=== PATIENT | female | born 1960 | race African-American/Black ===

== ENCOUNTER 2017-12-10 21:31 | Observation (INO) | payer OTHER ==
[~2017-12-10] VITALS: Ht 175.3 cm; Wt 70.0 kg
[~2017-12-10 21:31] MED LIST: CIPR500T4 PO; ONDA1TAB16 PO; PERC5TAB12 PO
[2017-12-10 22:18] VITALS: BP 132/63; PULSE 70; RESP 16; TEMP 99.2; O2SAT 99
--- NOTE | 2017-12-10 22:30 | RADRPT ---
EXAM DATE/TIME: 12/10/2017 21:59 [facility] COMPARISON: No previous studies available for comparison. INDICATIONS : Short of breath, cough. MEDICAL HISTORY : None. SURGICAL HISTORY : None. ENCOUNTER: Initial ACUITY: 1 day PAIN SCORE: 0/10 LOCATION: Bilateral chest FINDINGS: PA and lateral views of the chest demonstrate the lungs to be symmetrically aerated without evidence of mass, infiltrate or effusion. The cardiomediastinal contours are unremarkable. Osseous structure s are intact. CONCLUSION: No evidence of acute cardiopulmonary disease. Oscar Lutz MD on December 10, 2017 at 22:28 Board Certified Radiologist. This report was verified electronically.
--- NOTE | 2017-12-10 22:49 | PD ---
HPI Chief Complaint: Chest Pain Time Seen by Provider: 22:47 Travel History International Travel<30 days: No Contact w/Intl Traveler<30days: No Traveled to known affect area: No History of Present Illness HPI The patient is a 57 year old female who presents to the [facility] emergency department with a history of shortness of breath, throat pain, and chest pain that began at 6 :30 PM today while she was eating. She had n/v x2 with it and was belching. She then later began to notice an aching sensation in her left arm, therefore she came to the ER for evaluation. The pain is in the center of her and was a sharp sensation. It lasted for 10 minutes. She denies having any recent stress test. The patient denies any prior history of myocardial infarction, congestive heart failure, DVT, or PE. The patient denies any personal history of high blood pressure, diabetes, hyperlipidemia, or smoking. On review of systems otherwise, the patient denies having any known recent fevers, worsening cough or congestion (history of chronic cough from postnasal drip and allergies), abdominal pain, diarrhea, urinary symptoms, or neurologic symptoms. She denies any problems with acid reflux or heart burn. She denies any prior history of difficulty swallowing solids or liquids. PCP: Dr. Rangel. [facility] Past Medical History Narrative Medical The patient's past medical history is significant for kidney stones, allergic rhinitis, sinusitis. Arthritis: No Asthma: No Autoimmune Disease: No Blood Disorders: No Anxiety: No Depression: No Heart Rhythm Problems: No Cancer: No Cardiac Catheterization: Yes (no stents) Cardiovascular Problems: No High Cholesterol: No Chemotherapy: No Chest Pain: Yes Congestive Heart Failure: No COPD: No Cerebrovascular Accident: No Diabetes: No Diminished Hearing: No Endocrine: No Gastrointestinal Disorders: No GERD: No Glaucoma: No Genitourinary: No Headaches: No Hepatitis: No Hiatal Hernia: No Hypertension: No Immune Disorder: No Kidney Stones: Yes Musculoskeletal: No Neurologic: No Psychiatric: No Respiratory: No Immunizations Current: Yes Myocardial Infarction: No Radiation Therapy: No Renal Failure: No Seizures: No Sickle Cell Disease: No Sleep Apnea: No Thyroid Disease: No Ulcer: No Tetanus Vaccination: Unknown Influenza Vaccination: No ?: Not LMP: menapause Past Surgical History Narrative Surgical The patient's past surgical history is reportedly none. Abdominal Surgery: No AICD: No Cardiac Surgery: No Ear Surgery: No Endocrine Surgery: No Eye Surgery: No Genitourinary Surgery: No Gynecologic Surgery: No Joint Replacement: No Neurologic Surgery: No Oral Surgery: No Pacemaker: No Thoracic Surgery: No Social History Alcohol Use: No Tobacco Use: No Substance Use: No Allergies-Medications (Allergen,Severity, Reaction): Coded Allergies: penicillin G (Unverified Allergy, Severe, 12/10/17) Reported Meds & Prescriptions Reported Meds & Active Scripts Active No Active Prescriptions or Reported Medications Her only current medication is Zyrtec D Review of Systems Except as stated in HPI: all other systems reviewed are Neg General / Constitutional: No: Fever Eyes: No: Visual changes HENT: Positive: Neck Pain, No: Headaches, Neck Stiffness Cardiovascular: Positive: Chest Pain or Discomfort, Dyspnea on exertion, No: Diaphoresis Respiratory: Positive: Shortness of Breath, No: Cough Gastrointestinal: Positive: Nausea, Vomiting, No: Abdominal Pain Genitourinary: No: Dysuria Musculoskeletal: No: Pain Skin: No Rash Neurologic: No: Weakness, Focal Abnormalities, Change in Mentation, Slurred Speech, Sensory Disturbance Psychiatric: No: Depression Endocrine: No: Polydipsia Hematologic/Lymphatic: No: Easy Bruising Physical Exam Narrative General: The patient is a well-developed well-nourished female in no acute distress. Head and Neck exam: Head is normocephalic atraumatic. Eyes: EOMI, pupils are equal round and reactive to light. Nose: Midline septum with pink mucous membranes Mouth: Dentition unremarkable. Moist mucus membranes. Posterior oropharynx is not erythematous. No tonsillar hypertrophy. Uvula midline. Airway patent. Neck: No palpable lymphadenopathy. No nuchal rigidity. No thyromegaly. Cardiovascular: Regular rate and rhythm without murmurs, gallops, or rubs. No pulse deficit to the extremities on simultaneous auscultation of her radial artery. Lungs: Clear to auscultation bilaterally. No wheezes, rhonchi, or rales. Abdomen: Soft, without tenderness to palpation in all 4 quadrants of the abdomen. No guarding, rebound, or rigidity. Normal bowel sounds are audible. No tenderness on palpation of McBurney's point. Negative Pierce sign. Extremities: No clubbing, cyanosis, or edema. 2+ pulses in all 4 extremities. No calf tenderness on palpation. Negative Homans sign. No palpable cords. Back: No costovertebral angle tenderness to palpation. Neurologic Exam: Grossly nonfocal. Skin Exam: No rash noted. Intact skin that is warm and dry. Data Data Last Documented VS Vital Signs Date Time Temp Pulse Resp B/P (MAP) Pulse Ox O2 Delivery O2 Flow Rate FiO2 12/10/17 23:06 100 Room Air 12/10/17 23:06 84 18 166/74 (104) 12/10/17 22:18 99.2 Orders Orders Electrocardiogram (12/10/17 21:40) Complete Blood Count With Diff (12/10/17 21:40) Basic Metabolic Panel (Bmp) (12/10/17 21:40) Ckmb (Isoenzyme) Profile (12/10/17 21:40) Troponin I (12/10/17 21:40) Iv Access Insert/Monitor (12/10/17 21:40) Ecg Monitoring (12/10/17 21:40) Oxygen Administration (12/10/17 21:40) Oximetry (12/10/17 21:40) Chest, Pa & Lat (12/10/17 21:40) D-Dimer (12/10/17 23:10) Hepatic Functional Panel (12/10/17 23:16) Lipase (12/10/17 23:16) Admit Order (Ed Use Only) (12/11/17 00:35) Labs Laboratory Tests Test 12/10/17 23:16 White Blood Count 5.8 TH/MM3 Red Blood Count 4.70 MIL/MM3 Hemoglobin 12.5 GM/DL Hematocrit 37.7 % Mean Corpuscular Volume 80.3 FL Mean Corpuscular Hemoglobin 26.6 PG Mean Corpuscular Hemoglobin Concent 33.2 % Red Cell Distribution Width 14.0 % Platelet Count 251 TH/MM3 Mean Platelet Volume 8.9 FL Neutrophils (%) (Auto) 58.7 % Lymphocytes (%) (Auto) 28.9 % Monocytes (%) (Auto) 10.2 % Eosinophils (%) (Auto) 1.6 % Basophils (%) (Auto) 0.6 % Neutrophils # (Auto) 3.4 TH/MM3 Lymphocytes # (Auto) 1.7 TH/MM3 Monocytes # (Auto) 0.6 TH/MM3 Eosinophils # (Auto) 0.1 TH/MM3 Basophils # (Auto) 0.0 TH/MM3 CBC Comment DIFF FINAL Differential Comment D-Dimer Quantitative (PE/DVT) LESS THAN 0.19 MG/L FEU Blood Urea Nitrogen 14 MG/DL Creatinine 0.82 MG/DL Random Glucose 95 MG/DL Total Protein 7.2 GM/DL Albumin 4.1 GM/DL Calcium Level 9.8 MG/DL Alkaline Phosphatase 75 U/L Aspartate Amino Transf (AST/SGOT) 13 U/L Alanine Aminotransferase (ALT/SGPT) 21 U/L Total Bilirubin 0.3 MG/DL Direct Bilirubin 0.1 MG/DL Sodium Level 141 MEQ/L Potassium Level 3.9 MEQ/L Chloride Level 108 MEQ/L Carbon Dioxide Level 27.5 MEQ/L Anion Gap 6 MEQ/L Estimat Glomerular Filtration Rate 87 ML/MIN Indirect Bilirubin 0.2 MG/DL Total Creatine Kinase 62 U/L Troponin I LESS THAN 0.02 NG/ML Lipase 86 U/L MDM Medical Decision Making Medical Screen Exam Complete: Yes Emergency Medical Condition: Yes Medical Record Reviewed: Yes Interpretation(s) Last Impressions Gall Bladder Ultrasound 12/11/17 0000 Signed Impressions: Service Date/Time: Monday, December 11, 2017 09:09 - CONCLUSION: Normal examination. Shady Troy MD Chest X-Ray 12/10/17 2140 Signed Impressions: Service Date/Time: Sunday, December 10, 2017 21:59 - CONCLUSION: No evidence of acute cardiopulmonary disease. Oscar Lutz MD Differential Diagnosis Acute coronary syndrome, versus acid reflux, versus esophageal stricture Narrative Course During the course of the patient's emergency department visit, the patient's history, examination, and differential diagnosis were reviewed with the patient. The patient was placed on a cardiac specialist with oximetry and frequent blood pressure monitoring. The patient had IV access obtained and blood work sent for analysis. The patient had a EKG done on arrival that showed a sinus rhythm heart rate of 68, QRS duration 71 ms, QTC [address] segment elevation. T waves are inverted in V1, V2 The patient was initially provided aspirin 243 mg p.o. 1, the patient reports that she did take one low-dose aspirin after she developed the symptoms. Nitroglycerin 1 inch to the chest wall for The patient's studies were reviewed and remarkable for A CBC that shows no acute abnormality, CMP that shows no acute abnormality, initial set of cardiac enzymes are within normal limits, lipase 86, d-dimer is less than 0.19, decreasing likelihood of pulmonary embolism in this patient with no other significant risk factors. Chest x-ray showed no acute abnormality. The patient's results were discussed with the patient, including the plan of care. I explained that further testing and/ or monitoring is indicated based on the patient's history, examination, and/ or laboratory findings. Therefore, I recommended admission for additional evaluation. The patient expressed understanding and was agreeable with this plan. The patient was admitted to the hospital in stable condition and sent to a bed under the care of the chest pain center. Diagnosis Primary Impression: Chest pain, rule out acute myocardial infarction Admitting Information Admitting Physician Requests: Observation Scripts No Active Prescriptions or Reported Meds Mckenna Coronado MD Dec 10, 2017 22:49
[2017-12-10 23:06] VITALS: BP 166/74; PULSE 84; RESP 18; O2SAT 100
[2017-12-10 23:37] LABS: AUTOMATED NEUTROPHIL # 3.4 TH/MM3 (1.8-7.7); BASOPHIL % 0.6 % (0.0-2.0); EOSINOPHIL # 0.1 TH/MM3 (0-0.4); EOSINOPHIL % 1.6 % (0.0-4.0); HEMATOCRIT 37.7 % (35.0-46.0); HEMOGLOBIN 12.5 GM/DL (11.6-15.3); LYMPH % 28.9 % (9.0-44.0); LYMPHOCYTE # 1.7 TH/MM3 (1.0-4.8); MEAN CELL VOLUME 80.3 FL (80.0-100.0); MEAN CORPUSCULAR HEMOGLOBIN 26.6 PG (27.0-34.0); MEAN CORPUSCULAR HGB CONC 33.2 % (32.0-36.0); MEAN PLATELET VOLUME 8.9 FL (7.0-11.0); MONO % 10.2 % (0.0-8.0); MONOCYTE # 0.6 TH/MM3 (0-0.9); NEUT % 58.7 % (16.0-70.0); PLATELET COUNT 251 TH/MM3 (150-450); WHITE BLOOD COUNT 5.8 TH/MM3 (4.0-11.0)
[2017-12-10 23:53] LABS: ALBUMIN 4.1 GM/DL (3.4-5.0); ALT (GPT) 21 U/L (10-53); AST (GOT) 13 U/L (15-37); BICARBONATE 27.5 MEQ/L (21.0-32.0); BLOOD UREA NITROGEN 14 MG/DL (7-18); CALCIUM 9.8 MG/DL (8.5-10.1); CHLORIDE 108 MEQ/L (98-107); CREATININE 0.82 MG/DL (0.50-1.00); DIRECT BILIRUBIN ADULT 0.1 MG/DL (0.0-0.2); GLOMERULAR FILTRATION RATE 87 ML/MIN (>89); GLUCOSE,RANDOM 95 MG/DL (74-106); SODIUM (NA) 141 MEQ/L (136-145)
[2017-12-10 23:58] LABS: ALKALINE PHOSPHATASE 75 U/L (45-117); INDIRECT BILIRUBIN 0.2 MG/DL (0.0-0.8); TOTAL BILIRUBIN ADULT 0.3 MG/DL (0.2-1.0); TOTAL PROTEIN 7.2 GM/DL (6.4-8.2); TROPONIN I LESS THAN 0.02 NG/ML (0.02-0.05)
[2017-12-11] MEDS ORDERED: ZYRTEC D (00:26)
[2017-12-11] MEDS ORDERED: ACETAMINOPHEN 500 MG CPLT PO PRN (01:15)
[2017-12-11] MEDS ORDERED: NITROGLYCERIN 2% OINT 1 GM PACKET TOPICAL ONE (01:15)
[2017-12-11] MEDS ORDERED: ASPIRIN 81 MG CHEW TAB CHEW ONE (01:15)
[2017-12-11] MEDS ORDERED: SODIUM CHLORIDE 0.9% FLUSH 10 ML FLUSH IV FLUSH PRN (01:15)
[2017-12-11] MEDS ORDERED: ONDANSETRON HCL 4 MG/2 ML VIAL IV PUSH PRN (01:15)
[2017-12-11 02:53] LABS: TROPONIN I LESS THAN 0.02 NG/ML (0.02-0.05)
[2017-12-11 05:49] LABS: TROPONIN I LESS THAN 0.02 NG/ML (0.02-0.05)
[2017-12-11 07:00] VITALS: PULSE 70
[2017-12-11 07:55] VITALS: BP 93/55; PULSE 75; RESP 18; TEMP 98.1; O2SAT 99
--- NOTE | 2017-12-11 08:33 | HHI.HP ---
[facility] Primary Care Physician Kemal Rangel Jr, MD Chief Complaint Chest pain History of Present Illness This is a 57-year-old female that presents to ED via private vehicle with the complaint of developing a chest discomfort and throat pain almost immediately after eating dinner last evening. She began burping quite a bit. She had 2 episodes of nonbloody emesis. States he essentially vomited the food content she just eaten. She started to feel better after she had emesis. Believes the symptoms lasted about 40 minutes. However after that discomfort resolved she developed a left arm ache that seen last about an hour. She continued to burp. She felt a little short of breath. Denied diaphoresis. She states she has had this in past. Is not as intense. States she has the symptoms about once a month. Cannot really traced down particular foods of bring on but states that usually related to food ingestion. It is not felt as if the food gets stuck. Denies recent illness. Denies fevers or chills. Denies history of CAD. She has had a heart catheterization approximately 10 years ago that was normal. Does not follow a spring coverer. Currently has no chest discomfort or arm discomfort. Review of Systems General: Patient denies fevers, chills, and recent travel. HEENT: Patient denies headache, sore throat, difficulty swallowing. Cardiovascular: Has the chest discomfort as mentioned above. Denies sensation of heart beating rapidly or irregularly. No syncope. Denies diaphoresis. Respiratory: Mildly short of breath. Denies inspirational chest discomfort. Denies coughing wheezing or hemoptysis. GI: She was nauseous and had 2 episodes of emesis. Was nonbloody emesis. Patient denies diarrhea, abdominal pain, bloody stools. Musculoskeletal: Patient denies joint pain or edema. Denies calf pain or edema. Neurovascular: Patient denies numbness, tingling, weakness in extremities. Denies headache. Endocrine: Denies polyuria and polydipsia. Hematologic: Denies easy bruising. Skin: Denies rash or itching. Past Family Social History Allergies: Coded Allergies: penicillin G (Unverified Allergy, Severe, 12/10/17) Past Medical History Kidney stones and chronic sinusitis. Denies hypertension, hyperlipidemia, diabetes, and CAD. Past Surgical History Heart catheterization without intervention. Reported Medications Reported Meds & Active Scripts Active Reported [Zyrtec D] Active Ordered Medications Current Medications Medications (Trade) Dose Ordered Sig/Sebastian Route Start Time Stop Time Status Last Admin (NS Flush) 2 ml UNSCH PRN IV FLUSH 12/11/17 01:15 (NS Flush) 2 ml BID IV FLUSH 12/11/17 09:00 (Tylenol) 500 mg Q4H PRN PO 12/11/17 01:15 12/11/17 01:30 (Zofran Inj) 4 mg Q6H PRN IV PUSH 12/11/17 01:15 12/11/17 01:31 (Pepcid) 20 mg BID PO 12/11/17 09:00 Family History Denies family history of CAD. Social History Lifetime non-smoker. Denies alcohol or illicit drug use. Physical Exam Vital Signs Vital Signs Date Time Temp Pulse Resp B/P (MAP) Pulse Ox O2 Delivery O2 Flow Rate FiO2 12/11/17 07:55 98.1 75 18 93/55 (68) 99 12/11/17 01:59 12/10/17 23:06 100 Room Air 12/10/17 23:06 100 Room Air 12/10/17 23:06 84 18 166/74 (104) 100 Room Air 12/10/17 22:18 99.2 70 16 132/63 (86) 99 Physical Exam GENERAL: This is a well-nourished, well-developed patient, in no apparent distress. Patient speaks in clear complete sentences. Patient is pleasant. HEENT: Head is atraumatic and normocephalic. Neck is supple without lymphadenopathy and trachea is midline. No JVD or carotid bruits. CARDIOVASCULAR: Regular rate and rhythm without murmurs, gallops, or rubs. RESPIRATORY: Clear to auscultation. Breath sounds equal bilaterally. No wheezes , rales, or rhonchi. Chest wall is nontender. No use of accessory muscles. GASTROINTESTINAL: Abdomen is nontender, nondistended. Abdomen soft. No obvious pulsatile mass or bruit. No CVA tenderness. Strong femoral pulses bilaterally. Normal bowel sounds in all quadrants. MUSCULOSKELETAL: Patient is moving upper and lower extremities freely. No calf tenderness or edema, no Homans sign. Strong pulses in upper and lower extremities. NEUROLOGICAL: Patient is alert and oriented. Cranial nerves 2-12 are grossly intact. No focal deficits and speech is clear. SKIN: No rash and turgor is normal. Laboratory Laboratory Tests Test 12/10/17 23:16 12/11/17 02:20 12/11/17 05:10 White Blood Count 5.8 Red Blood Count 4.70 Hemoglobin 12.5 Hematocrit 37.7 Mean Corpuscular Volume 80.3 Mean Corpuscular Hemoglobin 26.6 Mean Corpuscular Hemoglobin Concent 33.2 Red Cell Distribution Width 14.0 Platelet Count 251 Mean Platelet Volume 8.9 Neutrophils (%) (Auto) 58.7 Lymphocytes (%) (Auto) 28.9 Monocytes (%) (Auto) 10.2 Eosinophils (%) (Auto) 1.6 Basophils (%) (Auto) 0.6 Neutrophils # (Auto) 3.4 Lymphocytes # (Auto) 1.7 Monocytes # (Auto) 0.6 Eosinophils # (Auto) 0.1 Basophils # (Auto) 0.0 CBC Comment DIFF FINAL Differential Comment D-Dimer Quantitative (PE/DVT) LESS THAN 0.19 Blood Urea Nitrogen 14 Creatinine 0.82 Random Glucose 95 Total Protein 7.2 Albumin 4.1 Calcium Level 9.8 Alkaline Phosphatase 75 Aspartate Amino Transf (AST/SGOT) 13 Alanine Aminotransferase (ALT/SGPT) 21 Total Bilirubin 0.3 Direct Bilirubin 0.1 Sodium Level 141 Potassium Level 3.9 Chloride Level 108 Carbon Dioxide Level 27.5 Anion Gap 6 Estimat Glomerular Filtration Rate 87 Indirect Bilirubin 0.2 Total Creatine Kinase 62 55 58 Troponin I LESS THAN 0.02 LESS THAN 0.02 LESS THAN 0.02 Lipase 86 Result Diagram: 12/10/17 2316 12/10/17 2316 Imaging Last 48 hours Impressions Chest X-Ray 12/10/170 Signed Impressions: Service Date/Time: Sunday, December 10, 2017 21:59 - CONCLUSION: No evidence of acute cardiopulmonary disease. Oscar Lutz MD Course EKGs are sinus rhythm without significant ST segment depressions or elevations. Caprini VTE Risk Assessment Caprini VTE Risk Assessment: No/Low Risk (score <= 1) Caprini Risk Assessment Model Point Value = 1 Point Value = 2 Point Value = 3 Point Value = 5 Age 41-60 Minor surgery BMI > 25 kg/m2 Swollen legs Varicose veins or History of unexplained or recurrent spontaneous Oral contraceptives or hormone replacement Sepsis (< 1 month) Serious lung disease, including pneumonia (< 1 month) Abnormal pulmonary function Acute myocardial infarction Congestive heart failure (< 1 month) History of inflammatory bowel disease Medical patient at bed rest Age 61-74 Arthroscopic surgery Major open surgery (> 45 min) Laparoscopic surgery (> 45 min) Malignancy Confined to bed (> 72 hours) Immobilizing plaster cast Central venous access Age >= 75 History of VTE Family history of VTE Factor V Leiden Prothrombin [id number] Lupus anticoagulant Anticardiolipin antibodies Elevated serum homocysteine Heparin-induced thrombocytopenia Other congenital or acquired thrombophilia Stroke (< 1 month) Elective arthroplasty Hip, pelvis, or leg fracture Acute spinal cord injury (< 1 month) Prophylaxis Regimen Total Risk Factor Score Risk Level Prophylaxis Regimen 0-1 Low Early ambulation 2 Moderate Order ONE of the following: *Sequential Compression Device (SCD) *Heparin 5000 units SQ BID 3-4 Higher Order ONE of the following medications: *Heparin 5000 units SQ TID *Enoxaparin/Lovenox 40 mg SQ daily (WT < 150 kg, CrCl > 30 mL/min) *Enoxaparin/Lovenox 30 mg SQ daily (WT < 150 kg, CrCl > 10-29 mL/min) *Enoxaparin/Lovenox 30 mg SQ BID (WT < 150 kg, CrCl > 30 mL/min) AND/OR *Sequential Compression Device (SCD) 5 or more Highest Order ONE of the following medications: *Heparin 5000 units SQ TID (Preferred with Epidurals) *Enoxaparin/Lovenox 40 mg SQ daily (WT < 150 kg, CrCl > 30 mL/min) *Enoxaparin/Lovenox 30 mg SQ daily (WT < 150 kg, CrCl > 10-29 mL/min) *Enoxaparin/Lovenox 30 mg SQ BID (WT < 150 kg, CrCl > 30 mL/min) AND *Sequential Compression Device (SCD) Assessment and Plan Assessment and Plan * Chest pain: Patient has had serial cardiac enzymes and EKGs for ruling out purposes. She has been seen by Dr. Donny Armstrong of cardiology in the chest pain center. Her symptoms are more GI related. We will get a Romel protocol ETT and if nonischemic likely be discharged home with instructions to follow up PCP. We will also get a ultrasound of the gallbladder. Patient will need follow-up with her PCP. Return to ED for interval issues. Patient is stable at this time. She is agreeable to this plan. Leland Oscar Dec 11, 2017 08:33
[2017-12-11] MEDS ORDERED: FAMOTIDINE 20 MG TAB PO SCH (09:00)
[2017-12-11] MEDS ORDERED: SODIUM CHLORIDE 0.9% FLUSH 10 ML FLUSH IV FLUSH SCH (09:00)
--- NOTE | 2017-12-11 09:41 | RADRPT ---
EXAM DATE/TIME: 12/11/2017 09:09 [facility] COMPARISON: No previous studies available for comparison. EXTERNAL COMPARISON : [facility], CT ABDOMEN & PELVIS W/O CONTRAST, June 18, 2014 INDICATIONS : Nausea/vomiting. MEDICAL HISTORY : Renal calculi. Chest pain. SURGICAL HISTORY : Cardiac cath. ENCOUNTER: Initial ACUITY: 1 day PAIN SCORE: 0/10 LOCATION: Right upper quadrant MEASUREMENTS: LIVER: 16.4 cm length COMMON DUCT: 4 mm RIGHT KIDNEY: 10.0 x 4.9 x 3.9 cm FINDINGS: LIVER: Normal echotexture without focal lesion or ductal dilatation. COMMON DUCT: No intraluminal mass or stone visualized. GALLBLADDER: Contains no stones, demonstrates no wall thickening or pericholecystic fluid. PANCREAS: The visualized portions are within normal limits. RIGHT KIDNEY: No evidence of hydronephrosis, stone, or mass. CONCLUSION: Normal examination. Shady Troy MD on December 11, 2017 at 9:37 Board Certified Radiologist. This report was verified electronically.
--- NOTE | 2017-12-11 10:24 | HHI.DCPOC ---
Discharge Care Plan Diagnosis: (1) Chest pain, atypical Goals to Promote Your Health * To prevent worsening of your condition and complications * To maintain your health at the optimal level Directions to Meet Your Goals Take your medications as prescribed Follow your dietary instruction Follow activity as directed Keep your appointments as scheduled Take your immunizations and boosters as scheduled If your symptoms worsen call your PCP, if no PCP go to Urgent Care Center or Emergency Room Smoking is Dangerous to Your Health. Avoid second hand smoke Call the 24-hour hour crisis hotline for domestic abuse at Leland Oscar Dec 11, 2017 10:24
--- NOTE | 2017-12-11 11:43 | EKG ---
Date Performed: 12/11/2017 Time Performed: 05:23:15 PTAGE: 57 years EKG: Sinus rhythm NORMAL ECG PREVIOUS TRACING : 12/11/2017 02.57 Since previous tracing, no significant change noted DOCTOR: Donny Armstrong Interpretating Date/Time 12/11/2017 11:42:59
--- NOTE | 2017-12-11 11:44 | EKG ---
Date Performed: 12/10/2017 Time Performed: 21:50:17 PTAGE: 57 years EKG: Sinus rhythm NORMAL ECG NO PREVIOUS TRACING DOCTOR: Donny Armstrong Interpretating Date/Time 12/11/2017 11:44:02
--- NOTE | 2017-12-11 11:44 | EKG ---
Date Performed: 12/11/2017 Time Performed: 02:57:29 PTAGE: 57 years EKG: Sinus rhythm NORMAL ECG PREVIOUS TRACING : 10/26/2008 21.46 Since previous tracing, no significant change noted DOCTOR: Donny Armstrong Interpretating Date/Time 12/11/2017 11:43:38
[2017-12-11 11:45] VITALS: BP 107/62; PULSE 66; RESP 16; TEMP 97.8; O2SAT 100
--- NOTE | 2017-12-11 11:55 | TR ---
Date Performed: 12/11/2017 Time Performed: 08:29:44 DOCTOR: Donny Armstrong DRUG LIST: CLINICAL HISTORY: REASON FOR TEST: REASON FOR ENDING: OBSERVATION: CONCLUSION: COMMENTS: Patient exercised using the Romel protocol. No electrocardiographic changes were seen to suggest ischemia. Hemodynamic response to exercise was normal. No significant arrhythmia was prese nt.
== END 2017-12-11 12:50 | disposition home or self-care (01) ==
LOC: NEPE 21:31 → NEDA 12-11 00:36 → UNDOADMOB 12-11 00:36 → NEPHCDU 12-11 02:14
PROVIDERS: ADMIT Internal Medicine Interventional Cardiology; ATTEND Internal Medicine Interventional Cardiology
DX: R07.89 Other chest pain (principal); R06.02 Shortness of breath; R07.0 Pain in throat; R11.2 Nausea with vomiting, unspecified; J30.9 Allergic rhinitis, unspecified; J32.9 Chronic sinusitis, unspecified; Z87.442 Personal history of urinary calculi
CPT/HCPCS: 71046; 76705; 80048; 80076; 82550; 83690; 84484; 85025; 85379; 93005; 93017; 96374; 99285; G0378; J2405